=== PATIENT | female | born 1960 | race Caucasian/White ===

== ENCOUNTER 2018-07-01 06:21 | Day surgery (SDC) | payer OTHER ==
[~2018-07-01] VITALS: Ht 154.9 cm; Wt 53.6 kg
[~2018-07-01 06:21] MED LIST: ALBU8.5H8 IH; CIPR-278 PO; FLUT110HFA IH; HYDR-4061 PO; MELO-107 PO; PRED10 PO; SODIUM CHLORIDE 0.9% 1,000 ML IV ONE
[2018-07-01] MEDS ORDERED: LIDOCAINE HCL 4% 50 ML SOLUTION TP ONE (06:22)
[2018-07-01] MEDS ORDERED: BENZOCAINE 20% 50 MCG/SPRAY 57 GM TP ONE (06:22)
[2018-07-01] MEDS ORDERED: LIDOCAINE HCL 2% 30 ML JELLY TP ONE (06:22)
[2018-07-01] MEDS ORDERED: SODIUM CHLORIDE 0.9% 1,000 ML IV ONE (06:54)
[2018-07-01] MEDS ORDERED: FentaNYL CITRATE-PF 100 MCG/2 ML VIAL ONE (07:13)
[2018-07-01] MEDS ORDERED: MIDAZOLAM HCL 2 MG/2 ML VIAL ONE (07:13)
[2018-07-01] MEDS ORDERED: COMBISP IH (07:22)
[2018-07-01] MEDS ORDERED: MOME13HF IH (07:22)
[2018-07-01] MEDS ORDERED: ACET-66 PO (07:22)
[2018-07-01] MEDS ORDERED: DULO30CA2 PO (07:22)
[2018-07-01] MEDS ORDERED: MethylPREDNISolone SOD SUCC 125 MG/2 ML VIAL IVP ONE (09:30)
[2018-07-01] MEDS ORDERED: MethylPREDNISolone SOD SUCC 125 MG/2 ML VIAL ONE (09:49)
[2018-07-01] MEDS ORDERED: OXYGEN THERAPY IH SCH (20:00)
== END 2018-07-01 11:50 | disposition home or self-care (01) ==
LOC: SURGERY 06:21
PROVIDERS: ATTEND Internal Medicine Critical Care Medicine
DX: J38.4 Edema of larynx (principal); B37.0 Candidal stomatitis; M06.9 Rheumatoid arthritis, unspecified; F32.9 Major depressive disorder, single episode, unspecified; Z87.891 Personal history of nicotine dependence; Z79.891 Long term (current) use of opiate analgesic; Z79.899 Other long term (current) drug therapy; Z98.890 Other specified postprocedural states
CPT/HCPCS: 31623; 31624; 71045; 87015; 87070; 87205; 87206; 87220; 88108; 88312; J2250; J2930; J3010; J7030

== ENCOUNTER 2020-07-22 06:29 | Day surgery (SDC) | payer OTHER ==
[~2020-07-22] VITALS: Ht 160 cm; Wt 57.0 kg
[~2020-07-22 06:29] MED LIST changes: +ACET-66 PO; -ALBU8.5H8 IH; -CIPR-278 PO; +COMBISP IH; +DULO30CA96 PO; -FLUT110HFA IH; -HYDR-4061 PO; -MELO-107 PO; +MOME13HF IH; -PRED10 PO; -SODIUM CHLORIDE 0.9% 1,000 ML IV ONE; +SODIUM CHLORIDE 0.9% 1,000 ML ONE
[2020-07-22] MEDS ORDERED: SODIUM CHLORIDE 0.9% 1,000 ML IV ONE (06:30)
[2020-07-22] MEDS ORDERED: MIDAZOLAM HCL 2 MG/2 ML VIAL ONE (07:51)
[2020-07-22] MEDS ORDERED: FentaNYL CITRATE-PF 100 MCG/2 ML VIAL ONE (07:51)
[2020-07-22] MEDS ORDERED: MethylPREDNISolone SOD SUCC 125 MG/2 ML VIAL IVP ONE (08:30)
[2020-07-22] MEDS ORDERED: OXYGEN THERAPY IH SCH (20:00)
[2020-07-22] MEDS ORDERED: LIDOCAINE 4% 50 ML SOLUTION ONE (21:36)
[2020-07-22] MEDS ORDERED: LIDOCAINE 2% 30 ML JELLY ONE (21:36)
[2020-07-22] MEDS ORDERED: BENZOCAINE 20% 50 MCG/SPRAY 57 GM ONE (21:36)
[2020-07-22] MEDS ORDERED: LIDOCAINE 2% 5 ML JELLY ONE (21:36)
[2020-07-22] MEDS ORDERED: ALBUTEROL SULFATE 2.5 MG/0.5 ML NEB SOLUTION NEB ONE (21:36)
== END 2020-07-22 10:05 | disposition home or self-care (01) ==
LOC: SURGERY 06:29
PROVIDERS: ATTEND Internal Medicine Critical Care Medicine
DX: J38.4 Edema of larynx (principal); B37.0 Candidal stomatitis; M06.9 Rheumatoid arthritis, unspecified; F32.9 Major depressive disorder, single episode, unspecified; Z11.59 Encounter for screening for other viral diseases; Z87.891 Personal history of nicotine dependence; Z98.890 Other specified postprocedural states
CPT/HCPCS: 31623; 31624; 71045; 87015; 87070; 87077; 87101; 87186; 87205; 87206; 87220; 87635; 88108; 88312; J2250; J2930; J3010; J7030; J7613; Z7610

== ENCOUNTER 2021-01-06 05:54 | Day surgery (SDC) | payer OTHER ==
[~2021-01-06] VITALS: Ht 154.9 cm; Wt 56.0 kg
[~2021-01-06 05:54] MED LIST changes: -SODIUM CHLORIDE 0.9% 1,000 ML ONE
[2021-01-06] MEDS ORDERED: LIDOCAINE 2% 30 ML JELLY TP ONE (05:55)
[2021-01-06] MEDS ORDERED: LIDOCAINE 4% 50 ML SOLUTION TP ONE (05:55)
[2021-01-06] MEDS ORDERED: BENZOCAINE 20% 50 MCG/SPRAY 57 GM TP ONE (05:55)
[2021-01-06] MEDS ORDERED: ALBUTEROL SULFATE 2.5 MG/0.5 ML NEB SOLUTION NEB ONE (05:55)
[2021-01-06 06:15] LABS: COVID AG,FIA SOURCE NASOPHARYNGEAL
[2021-01-06] MEDS ORDERED: SODIUM CHLORIDE 0.9% 1,000 ML IV ONE (06:30)
[2021-01-06] MEDS ORDERED: SODIUM CHLORIDE 0.9% 1,000 ML ONE (07:09)
[2021-01-06] MEDS ORDERED: MIDAZOLAM HCL 2 MG/2 ML VIAL ONE (07:33)
[2021-01-06] MEDS ORDERED: FentaNYL CITRATE PF 100 MCG/2 ML VIAL ONE (07:33)
[2021-01-06] MEDS ORDERED: MethylPREDNISolone SOD SUCC 125 MG/2 ML VIAL ONE (09:00)
[2021-01-06] MEDS ORDERED: MethylPREDNISolone SOD SUCC 125 MG/2 ML VIAL IVP ONE (09:00)
[2021-01-06] MEDS ORDERED: OXYGEN THERAPY IH SCH (20:00)
== END 2021-01-06 10:15 | disposition home or self-care (01) ==
LOC: SURGERY 05:54
PROVIDERS: ATTEND Internal Medicine Critical Care Medicine
DX: J38.4 Edema of larynx (principal); B37.0 Candidal stomatitis
CPT/HCPCS: 31623; 31624; 71045; 87070; 87101; 87206; 87220; 87426; 88184; 88185; 93005; C9803; J2250; J2930; J3010; J7030; 87015; 87205; 88108; 88312; J7613; Z7610